=== PATIENT | female | born 1950 | race Caucasian/White ===

== ENCOUNTER 2020-01-16 12:33 | Emergency (ER) | payer MEDICARE, SELFPAY ==
--- NOTE | ~2020-01-16 | XR_ITS ---
XR foot LT min 3V DATE: 01/16/2020 13:05 INDICATION: Patient fell a few weeks ago. Lateral pain since then. TECHNIQUE: 4 views COMPARISON: None FINDINGS: There is a nondisplaced transverse fracture of the very proximal shaft of the fifth metatar caitie bone.. There is some sclerosis at the apposing fracture margins without obvious bony bridging at the fracture site or any periosteal reaction or callus formation otherwise. No other fracture or dislocation, periosteal reaction or bone destruction is detected. IMPRESSION: Transverse nondisplaced fracture at the very proximal shaft of the fifth metatarsal bone with sclerosis at the opposing fracture margins without obvious bony bridging; there is concern for p ossible interventional nonunion. Reviewed, dictated and finalized at location B. IMPRESSION: Transverse nondisplaced fracture at the very proximal shaft of the fifth metatarsal bone with sclerosis at the opposing fracture margins without o bvious bony bridging; there is concern for possible interventional nonunion.
[2020-01-16 12:54] VITALS: BP 150/73; PULSE 67; RESP 20; TEMP 36.6; O2SAT 100
--- NOTE | 2020-01-16 13:06 | ED.LOWEXIN ---
HPI - Extremity Injury (Lower) General Chief Complaint: Extremity Injury, Lower Stated Complaint: L/foot pain/swollen Time Seen by Provider: 01/16/20 13:06 Source: patient and RN notes reviewed History of Present Illness HPI Narrative: Patient is a 69-year-old female who presents the urgent care with complaints of left foot pain. Patient states that she fell in her home approximately 2 weeks ago and was never seen for the left foot pain. Patient states that over the last few days she is noticed some increased pain with ambulation and some swelling. Patient states that she has been elevating using ice and taking Advil. No other acute complaints. No acute distress noted. Patient read the plan of care. Related Data Home Medications Medication Instructions Recorded Confirmed No Home Medications 01/16/20 01/16/20 Allergies Allergy/AdvReac Type Severity Reaction Status Date / Time No Known Drug Allergies Allergy Unknown NONE Verified 01/16/20 12:52 Review of Systems Review of Systems: Narrative: CONSTITUTIONAL: Denies fever, chills, or sweats. EYES: Denies visual changes, redness, or discharge. ENT: Denies rhinorrhea, congestion, sore throat, or otalgia. CARDIOVASCULAR: Denies chest pain, palpitations, or edema. RESPIRATORY: Denies cough or dyspnea. GASTROINTESTINAL: Denies abdominal pain, nausea, vomiting, or diarrhea. GENITOURINARY: Denies dysuria or hematuria. SKIN: Denies rash or itching. MUSCULOSKELETAL: Reports of left foot pain and swelling NEUROLOGIC: Denies headache, numbness, or weakness. All other systems reviewed are negative, except as documented in HPI. PMFSH Comments At the time of my signature, I reviewed and agree with the nursing past medical, surgical, social, and family history. There is no relevant family history pertinent to the patient complaint. Exam Narrative: Exam Narrative: GENERAL: This is a well-nourished, well-developed patient, in no apparent distress. HEAD: normocephalic, atraumatic. EYES: PERRL. Sclera clear/white. Vision is grossly intact. EARS: External ears normal NOSE: External nose normal with no obvious nasal discharge, nares without redness, no rhinorrhea. THROAT: Mucous membranes moist NECK: Neck supple SKIN: warm, intact with no suspicious lesions or rash, good texture and turgor. NEURO: awake, alert, and oriented to person, place and time. There were no obvious focal neurologic abnormalities. EXTREMITIES: Mild to moderate left dorsal foot edema with moderate left foot lateral tenderness over the fifth metatarsal. Positive strong left pedal pulse with capillary refill less than 2 seconds Course Vital Signs Vital signs: Vital Signs Temperature 97.9 F 01/16/20 12:54 Pulse Rate 67 01/16/20 12:54 Respiratory Rate 01/16/20 12:54 Blood Pressure 150/73 H 01/16/20 12:54 Pulse Oximetry 100 01/16/20 12:54 Temperature 97.9 F 01/16/20 12:54 Pulse Rate 01/16/20 12:54 Respiratory Rate 01/16/20 12:54 Blood Pressure 150/73 H 01/16/20 12:54 Pulse Oximetry 01/16/20 12:54 Reviewed?patient is informed that they may have pre-hypertension or hypertension based on a blood pressure reading in the department. I recommend the patient call the primary care provider listed on their discharge instructions or a physician of their choice this week to arrange follow-up for further evaluation of possible pre-hypertension or hypertension. Procedures Orthopedic Splinting/Casting Injury #1: Side: left Lower Extremity Injury Location: foot OCL: short leg Pre-Procedure Neuro Vascular Exam: normal Post-Procedure Neuro Vascular Exam: normal Other Orthopedic Equipment: crutches Additional Comments: Left short leg OCL for left fifth metatarsal fracture. Patient tolerated OCL splinting well without any complications. Neurovascular exam within normal limits pre-and post procedure. Patient directed on crutch use. MDM - Ex
== END 2020-01-16 14:00 | disposition home or self-care (01) ==
PROVIDERS: Emergency Provider Nurse Practitioner Family; PCP Family Medicine Adolescent Medicine
DX: S92.355A Nondisplaced fracture of fifth metatarsal bone, left foot, initial encounter for closed fracture (principal); W19.XXXA Unspecified fall, initial encounter; M81.0 Age-related osteoporosis without current pathological fracture
CPT/HCPCS: 29505; 73630; 99214; G0463

== ENCOUNTER → 2020-09-09 10:01 | Outpatient (CLI) | payer MEDICARE, SELFPAY ==
--- NOTE | ~2020-09-09 | DEXA_ITS ---
Bone Density Report Name: Shari Salas Age: 69 Sex: Female Ethnicity: White Date of : 1950 Indication: osteopenia; postmenopausal Referring Provider: ANA PELLETIER Study: Bone densitometry was performed. Exam Date: September 09, 2020 Accession number: [id number] Bone Density: Region BMD T-score Z-score Classification AP Spine (L1, L2, L3) 0.882 -1.2 0.8 Osteopenia Femoral Neck (Left) 0.635 -1.9 -0.2 Osteopenia Total Hip (Left) 0.840 -0.8 0.7 Normal Femoral Neck (Right) 0.627 -2.0 -0.2 Osteopenia Total Hip (Right) 0.791 -1.2 0.2 Osteopenia Total Hip Mean 0.816 -1.0 0.5 Normal World Health Organization criteria for BMD impression classify patients as: Normal (T-score at or above -1.0), Osteopenia (T-score between -1.0 and -2.5), or Osteoporosis (T-score at or below -2.5). 10-year Fracture Risk(1): Major Osteoporotic Fracture 8.9% Hip Fracture 1.8% Reported Risk Factors: [place] (), Neck BMD=0.627, BMI=16.8 (1) FRAX(R) Version 3.08. Fracture probability calculated for an untreated patient. Fracture probability may be lower if the patient has received treatment. Previous Exams: Region Exam Age BMD T-score BMD Change BMD Change Date g/cm2 vs Baseline vs Previous AP Spine(L1, L2, L3) 09/09/2020 69 0.882 -1.2 0.162* 0.043* 12/06/2016 65 0.839 -1.6 0.119* 0.003 10/02/2014 63 0.836 -1.7 0.116* 0.036* 09/19/2012 61 0.800 -2.0 0.080* 0.046* 08/19/2011 60 0.754 -2.4 0.034* -0.001 06/09/2010 59 0.755 -2.4 0.035* 0.006 05/02/2008 57 0.749 -2.4 0.029* 0.029* 04/07/2006 55 0.720 -2.7 Total Hip(Left) 09/09/2020 69 0.840 -0.8 0.059 0.038* 12/06/2016 65 0.803 -1.1 0.022 0.024 10/02/2014 63 0.779 -1.3 -0.002 0.037* 09/19/2012 61 0.742 -1.6 -0.039 0.018 08/19/2011 60 0.725 -1.8 -0.057 -0.001 06/09/2010 59 0.725 -1.8 -0.056 0.011 05/02/2008 57 0.715 -1.9 -0.067 0.025 04/07/2006 55 0.690 -2.1 -0.091 -0.091 02/06/2004 53 0.781 -1.3 Total Hip(Right) 09/09/2020 69 0.791 -1.2 0.055 -0.004 12/06/2016 65 0.795 -1.2 0.059 0.034* 10/02/2014 63 0.761 -1.5 0.025 0.031* 09/19/2012 61 0.730 -1.7 -0.006 0.006 08/19/2011 60 0.724 -1.8 -0.012 0.047* 06/09/2010 59 0.676
== END ==
PROVIDERS: PCP Family Medicine Adolescent Medicine; Visit Provider Family Medicine Adolescent Medicine
DX: Z78.0 Asymptomatic menopausal state (principal); M85.88 Other specified disorders of bone density and structure, other site; M85.852 Other specified disorders of bone density and structure, left thigh; M85.851 Other specified disorders of bone density and structure, right thigh
CPT/HCPCS: 77080

== ENCOUNTER → 2023-04-18 07:46 | Outpatient (CLI) | payer MEDICARE, SELFPAY ==
--- NOTE | ~2023-04-18 | US_ITS ---
EXAMINATION: US pelvic complete w TV DATE: 04/18/2023 08:23 INDICATION: Postmenopausal bleeding Comparison:No prior studies for comparison. TECHNIQUE: Multiple transabdominal and endovaginal sonographic images of the pelvis performed. FINDINGS: The uterus measures 5.6 x 4.1 x 2.7 cm. The endometrial complex measures 7 mm. There is flu id in the endometrium. The ovaries not visualized. There is no free fluid in the pelvis. There are no abnormal masses seen on either side. IMPRESSION: 1. Thickened endomtrial complex. The differential diagnosis includes endometrial hyperplasia, polyp a nd carcinoma. Biopsy is recommended. Fluid present in the endometrium. Reviewed, dictated and finalized at location L. IMPRESSION: 1. Thickened endomtrial complex. The differential diagnosis includes endometria l hyperplasia, polyp and carcinoma. Biopsy is recommended. Fluid present in the endometrium.
== END ==
PROVIDERS: PCP Family Medicine Adolescent Medicine; Visit Provider Registered Nurse
DX: N95.0 Postmenopausal bleeding (principal)
CPT/HCPCS: 76830; 76856

== ENCOUNTER → 2023-06-07 16:06 | Outpatient (CLI) | payer MEDICARE, SELFPAY ==
--- NOTE | ~2023-06-07 | MM_ITS ---
EXAMINATION: MM screening ramos BI w aranza HISTORY: Screening TECHNIQUE: Craniocaudal and mediolateral oblique 3-D tomosynthesis images were obtained and synthetic 2-D images were generated. CAD analysis was submitted and interpreted. COMPARISON: Comparison to multiple prior studies sequentially, with oldest reviewed study dated 02/22. BREAST PARENCHYMAL COMPOSITION: The breasts are heterogeneously dense, which may obscure small masses FINDINGS: There is no evidence of suspicious mass, calcification, or architectural distortion to sugg est malignancy in either breast. There has been no suspicious interval change. IMPRESSION: 1. No mammographic evidence of malignancy. 2. Recommend routine screening mammography in one year. BI-RADS Category 1: Negative Reviewed, dictated and finalized at location A. ROL ENGINEER
== END ==
PROVIDERS: PCP Family Medicine Adolescent Medicine; Visit Provider Family Medicine Adolescent Medicine
DX: Z12.31 Encounter for screening mammogram for malignant neoplasm of breast (principal)
CPT/HCPCS: 77063; 77067

== ENCOUNTER 2023-07-07 00:46 | Day surgery (SDC) | payer MEDICARE, SELFPAY ==
[2023-07-04 10:31] VITALS: BMI 16.6
--- NOTE | 2023-07-04 10:36 | PC.NURSE ---
Report to the Outpatient Waiting Room, entrance under the green pavilion located off [facility], at time 0915 on date 07/07/23. Planned Procedure Time: 1115. Time changes happen often and if your time is changed the preop area will call you the afternoon before. - You and your visitor will be asked to self-screen and do not enter if you have any COVID symptoms. - A mask is optional within the hospital at this time. Patients may have clear liquids (water, carbonated beverages, clear teas, apple juice) until 3 hours prior to surgery with a maximum of 20 ounces. - No food from midnight until time of surgery Take the following medications with a SIP of water the morning of surgery: NONE DO NOT STOP ANY OF YOUR OTHER PRESCRIPTION MEDICATIONS PRIOR TO SURGERY ?EXCEPT THE FOLLOWING Medications to discontinue per physician: N/A Date to take last dose: N/A Please no make-up, nail serbian, hairspray, perfume, deodorant, or body powder the day of surgery. No jewelry (including any body piercings) or valuables the day of surgery, leave them at home. Please take a shower or bath the night before, or the morning of, surgery with an antibacterial soap. Wear comfortable, loose fitting clothing. - Jewelry must be removed prior to entering the operating room. Rings and piercings that are not removed may be cut off. - The hospital will not accept responsibility for valuables. - Please leave all valuables, including medications, at home the day of surgery. If you are going home after surgery, a licensed route driver salesperson must drive you home. - NO public transportation without another adult if you receive anesthesia. - We recommend that an adult stay with you for 24 hours following discharge. - We also recommend that you do not drive, make important decision, drink alcoholic beverages, or take any drugs that were not prescribed by your health care provider for at least 24 hours after your discharge time. Follow any additional instructions given to you from your surgeon. If you or anyone in your household have experienced Covid symptoms in the past week, please notify your surgeon or the nurse liaison at the phone number below for possible testing. Telephone instructions given to PT - DEACON MEYERS and asked if any additional questions and then verbalized understanding. Patient advised to call surgeon office or pre surgery nurse liaison [phone] if any additional questions.
--- NOTE | 2023-07-07 06:02 | PM.IMHP ---
H&P: HPI History of Present Illness Date/Time: 07/07/23 06:02 Chief Complaint: Postmenopausal bleeding and thickened endometrial stripe. Narrative: She is here for scheduled D and C hysteroscopy which has been recommended due to thickened endometrial stripe of 7mm. The ultrasound was ordered due to an episode of postmenopausal bleeding. She has been recommended for endometrial sampling. She has been informed of options for obtaining endometrial sampling and risk benefits of those options and she has opted for dilation and curettage and hysteroscopy and removal of any lesion if present. Review of Systems Review of Systems: All systems reviewed & are unremarkable except as noted in HPI and below Cardiovascular: Cardiovascular: Reports no additional cardiovascular complaints, Denies chest pain and Denies dyspnea Respiratory: Respiratory: Reports no additional respiratory complaints and Denies dyspnea Gastrointestinal: Gastrointestinal: Reports abdominal pain, Denies change in bowel habits, Denies diarrhea, Denies nausea and Denies vomiting Genitourinary: Genitourinary: Reports pelvic pain Musculoskeletal: Musculoskeletal: Reports back pain Integumentary/Breasts: Skin/Breast: Reports system reviewed and no additional complaints, except as docu Neurologic: Reports system reviewed and no additional complaints, except as documented [facility] Past Medical History Medical History High cholesterol Osteoporosis (~2005) On Prolia Postmenopausal bleeding Surgical History Surgical History History of bilateral tubal ligation History of hysteroscopy (~1971) suction D&C missed AB History of lumbar surgery (07/2022) Decompression for left sciatica History of orthopedic surgery (~06/2019) screw in left foot from a fall History of tonsillectomy Family History Family History Mother Glaucoma Depression Father Acute myocardial infarction Heart disease Social History Social History Smoking status: Never smoker Second hand tobacco smoke exposure: No Alcohol intake: current Alcohol use details: RARE Substance use: never Substance use type: does not use Lack of Transportation: No Lack of Food: Never True Current Housing: I Have Housing Concerned About Future Housing: No Difficulty Paying Gas/Electric Bills: No Difficulty Paying for Meds: No Currently Unemployed: No Education: High School Diploma/GED Difficulty w/ Childcare or Family Care: No Living arrangements: alone Additional living arrangements comments: single Occupation/Education: retired Gender identity (if verbalized by the patient): Female Sexual Orientation (if Verbalized by the Patient): Straight or Heterosexual Spiritual care concerns: No Agree to blood products: Yes Meds Home Medications and Allergies Home Medications Medication Instructions Recorded Confirmed Type denosumab 60 mg/mL subcutaneous 60 mg subcut [id number] #1 mL 08/17/21 07/04/23 Rx syringe (Prolia) atorvastatin 20 mg tablet 20 mg PO DAILY #90 tabs 03/14/23 07/04/23 Rx Allergies Allergy/AdvReac Type Severity Reaction Status Date / Time No Known Allergies Allergy Verified 07/04/23 10:30 Exam Const: Orientation/consciousness: oriented to person and oriented to place HENMT: Head: normal to inspection Eyes: General: appearance normal, both eyes and all related structures Resp: Effort & Inspection: normal respiratory effort Auscultation: clear to auscultation bilaterally Cardio: Rate: regular rate Rhythm: regular rhythm GI: Inspection: normal to inspection GI Palp: No Rebound tenderness present Neuro: General: oriented to person and oriented to place Cognition (Neuro): normal cognition Extrem: General:
[2023-07-07 09:20] VITALS: BP 128/71; PULSE 61; RESP 14; TEMP 36.9; O2SAT 99
[2023-07-07] MEDS: ACETAMINOPHEN 500 MG TABLET 1000 MG PO (09:20)
--- NOTE | 2023-07-07 09:36 | WPDHPUPDATE1 ---
History and Physical Update Update Date/Time: 07/07/23 09:36 History and Physical has been reviewed, including an updated exam of the patient. There are NO changes in the patient's condition. Risks, benefits, and alternatives have been discussed and questions answered. Patient agrees to proceed with procedure.
[2023-07-07] MEDS: LACTATED RINGERS 1,000 ML 30 ML IV CONT (10:00)
--- NOTE | 2023-07-07 10:29 | WPDANESEPPF ---
Anes - Initial Pre Proc Eval Procedure: Operation Date: 07/07/23 11:15 Proposed Procedures p Hysteroscopy Dilation and Curettage with Removal of any Endometrial Lesion, If Necessary - Tariq Sylvester MD Date/Time: 07/07/23 10:29 Surgeon: Tariq Sylvester MD Pre Op Diagnosis: Post Menopausal Bleeding Patient Data Age: 72 Gender: F Height: 1.55 m Weight: 40.1 kg Last Vital Signs Temp 36.9 C 07/07/23 09:20 Pulse 61 07/07/23 09:20 Resp 14 07/07/23 09:20 BP 128/71 07/07/23 09:20 Pulse Ox 99 07/07/23 09:20 O2 Del Method Room Air 07/07/23 09:20 Allergies Allergy/AdvReac Type Severity Reaction Status Date / Time No Known Allergies Allergy Verified 07/07/23 09:42 Home Medications Medication Instructions Recorded Confirmed Type denosumab 60 mg/mL subcutaneous 60 mg subcut [id number] #1 mL 08/17/21 07/04/23 Rx syringe (Prolia) atorvastatin 20 mg tablet 20 mg PO DAILY #90 tabs 03/14/23 07/04/23 Rx Patient hx anesthesia problems: none Family hx anesthesia problems: none Results Review: All pre-operative results and documents have been reviewed as part of the pre-operative evaluation. [facility] [place] Past Medical History Medical History High cholesterol Osteoporosis (~2005) On Prolia Postmenopausal bleeding Surgical History Surgical History History of bilateral tubal ligation History of hysteroscopy (~1971) suction D&C missed AB History of lumbar surgery (07/2022) Decompression for left sciatica History of orthopedic surgery (~06/2019) screw in left foot from a fall History of tonsillectomy Family History Family History Mother Glaucoma Depression Father Acute myocardial infarction Heart disease Social History Social History Smoking status: Never smoker Second hand tobacco smoke exposure: No Alcohol intake: current Alcohol use details: RARE Substance use: never Substance use type: does not use Lack of Transportation: No Lack of Food: Never True Current Housing: I Have Housing Concerned About Future Housing: No Difficulty Paying Gas/Electric Bills: No Difficulty Paying for Meds: No Currently Unemployed: No Education: High School Diploma/GED Difficulty w/ Childcare or Family Care: No Living arrangements: alone Additional living arrangements comments: single Occupation/Education: retired Gender identity (if verbalized by the patient): Female Sexual Orientation (if Verbalized by the Patient): Straight or Heterosexual Spiritual care concerns: No Agree to blood products: Yes Anes - Eval Final PreProcedure Day of Procedure 07/07/23 10:29 Patient weight: thin Heart: regular rate and rhythm Lungs: clear to auscultation Airway: Mallampati scale class II Neurological: alert and oriented Last oral intake: >/= 8 hours ASA classification: II Emergent: no Anesthetic plan: proceed Anesthesia type and monitoring: general GIVS and standard monitoring Results Review: All pre-operative results and documents have been reviewed as part of the pre-operative evaluation. Informed Consent: The patient's anesthetic plan and its attendant risks and benefits were discussed with the patient/family/POA. Questions were solicited and answers provided to the satisfaction of the patient/family/POA.
[2023-07-07] MEDS: ceFAZolin 2 GM/D5W 50 ML 2 GM/50 ML BAG IVPB (10:56)
[2023-07-07] MEDS: LIDOCAINE HCL 1% LOCAL INJ 20 ML VIAL INFILTRATE (10:58)
[2023-07-07 11:07] VITALS: BP 115/68; PULSE 59; RESP 16; O2SAT 98
--- NOTE | 2023-07-07 11:08 | W.PM.PROC2 ---
Procedure Note - Detailed Date of Procedure 07/07/23 Pre-op Diagnosis Post Menopausal Bleeding, thickened endometrial stripe Post-op Diagnosis Same (Uterine septum) Procedure Performed Hysteroscopy and dilation and currettage and aveta sampling of endometrial tissue Surgeon Tariq Sylvester MD Anesthesia MAC and Local Indications Patient with episode of postmenopausal bleeding and workup showed thickened endometrial stripe. Findings Uterus sound to 7cm, septum tissue from fundus to mid uterus, the rest of the cavity atrophic Description of Procedure After informed consent was obtained patient was taken to the operating room and adequate IV sedation was administered. Attention was turned to the vagina. Speculum was inserted. Single-tooth tenaculum placed on the anterior lip of the cervix. The uterus was sounded to 7cm. The cervix was dilated to a 2 denis dilator and the rest of the dilation was with hydrodilation with the aveta hysteroscopy. The scope was advanced into uterine cavity. The findings consistent with septum going to mid uterine cavity, both ostia visualized, the rest of the cavity atrophic. The aveta sampling of the tissue, septum band was performed then a curettage was performed with minimal tissue obtained. The hysteroscope was removed the single-tooth tenaculum was removed hemostasis was noted at the tenaculum site. Sponge count correct. The patient taken to recovery in stable condition. Estimated Blood Loss 5 Drains No Packing No Pathology Yes (scant shavings and curettings) Complications No immediate complications Condition Stable Disposition Same day [facility] Billing Surgery - Charge Forward: Surgery Billing
[2023-07-07 11:20] VITALS: BP 120/75; PULSE 51; RESP 16; O2SAT 98
[2023-07-07 11:40] VITALS: BP 148/78; PULSE 50; RESP 16; O2SAT 99
[2023-07-07 12:10] VITALS: BP 140/78; PULSE 52; RESP 16; O2SAT 100
== END 2023-07-07 12:14 | disposition home or self-care (01) ==
PROVIDERS: PCP Family Medicine Adolescent Medicine; Visit Provider Obstetrics & Gynecology
PROC: 0U5B8ZZ Destruction of Endometrium, Via Natural or Artificial Opening Endoscopic (ICD-10-PCS; CPT 58563; principal; 2023-07-07 11:15)
DX: N95.0 Postmenopausal bleeding (principal); E78.00 Pure hypercholesterolemia, unspecified; M81.0 Age-related osteoporosis without current pathological fracture
CPT/HCPCS: 58558; 88305; A9270; J0690; J2704; J3010; J7120

== ENCOUNTER 2024-08-26 11:51 | Outpatient (CLI) | payer MEDICARE, SELFPAY | END 2024-08-26 11:52 | disposition home or self-care (01) | LOC: ANHIMG 11:52 | PROVIDERS: PCP Family Medicine Adolescent Medicine; Visit Provider Family Medicine Adolescent Medicine | DX: M85.89 Other specified disorders of bone density and structure, multiple sites (principal); Z78.0 Asymptomatic menopausal state; Z13.820 Encounter for screening for osteoporosis | CPT/HCPCS: 77080 ==